=== PATIENT | male | born 1990 | race Hispanic/Latino ===

== ENCOUNTER 2022-11-24 08:00 | Emergency (ER) | payer SELFPAY ==
--- NOTE | 2022-11-24 08:26 | ER ---
Nurse's Notes [facility] Name: Eliceo Vivar Age: 32 yrs Sex: Male : 1990 Arrival Date: 11/24/2022 Time: 08:00 Bed 15 Private MD: Diagnosis: Abrasion of penis Presentation: 11/24 08:16 Chief complaint: Patient states: penile pain around the tip x1 mo with a purple dot kc6 that appeared x1 week ago. denies urinary symptoms or n/v/d. stated he has seen an MD and they told him it could be secondary to complicated intercourse. Coronavirus screen: At this time, the client does not indicate any symptoms associated with coronavirus-19. Ebola Screen: No symptoms or risks identified at this time. Initial Sepsis Screen: Does the patient meet any 2 criteria? No. Patient's initial sepsis screen is negative. Does the patient have a suspected source of infection? No. Patient's initial sepsis screen is negative. Risk Assessment: Do you want to hurt yourself or someone else? Patient reports no desire to harm self or others. Onset of symptoms was November 24, 2022. 08:16 Method Of Arrival: Ambulatory kc6 08:16 Acuity: DRAGAN 4 kc6 Triage Assessment: 08:17 General: Appears in no apparent distress. comfortable, Behavior is calm, cooperative, kc6 appropriate for age. Pain: Complains of pain in penis. EENT: No signs and/or symptoms were reported regarding the EENT system. Neuro: Level of Consciousness is awake, alert, obeys commands, Oriented to person, place, time, situation, Appropriate for age. Cardiovascular: Capillary refill < 3 seconds. Respiratory: Airway is patent Trachea midline Respiratory effort is even, unlabored, Respiratory pattern is regular, symmetrical. GI: No signs and/or symptoms were reported involving the gastrointestinal system. : No signs and/or symptoms were reported regarding the genitourinary system. Denies burning with urination, discharge, urinary frequency. Derm: No signs and/or symptoms reported regarding the dermatologic system. Skin is intact, is healthy with good turgor, Skin is pink, warm \T\ dry. Musculoskeletal: No signs and/or symptoms reported regarding the musculoskeletal system. Circulation, motion, and sensation intact. Capillary refill < 3 seconds, Range of motion: intact in all extremities. Historical: - Allergies: 08:17 No Known Allergies; kc6 - Home Meds: 08:17 None [Active]; kc6 - PMHx: 08:17 None; kc6 - PSHx: 08:17 None; kc6 - Immunization history:: Adult Immunizations up to date. - Social history:: Smoking status: Patient denies any tobacco usage or history of. - Family history:: not pertinent. Screenin:18 [facility] ED Fall Risk Assessment (Adult) History of falling in the last 3 months, kc6 including since admission No falls in past 3 months (0 pts) Confusion or Disorientation No (0 pts) Intoxicated or Sedated No (0 pts) Impaired Gait No (0 pts) Mobility Assist Device Used No (0 pt) Altered Elimination No (0 pt) Score/Fall Risk Level 0 - 2 = Low Risk. Abuse screen: Denies threats or abuse. Denies injuries from another. Nutritional screening: No deficits noted. Tuberculosis screening: No symptoms or risk factors identified. Assessment: 08:19 Reassessment: please see triage assessment. kc6 Vital Signs: 08:16 BP 148 / 102; Pulse 99; Resp 18 S; Temp 97.9(O); Pulse Ox 99% on R/A; kc6 ED Course: 08:02 Patient arrived in ED. mg5 08:04 Gerson Alicia MD is Attending Physician. rt 08:16 Smiley Cope RN is Primary Nurse. kc6 08:17 Triage completed. kc6 08:17 Arm band placed on. kc6 08:18 Patient has correct armband on for positive identification. Bed in low position. Call kc6 light in reach. Side rails up X 1. 08:48 No provider procedures requiring assistance completed. Patient did not have IV access kc6 during this emergency room visit. Administered Medications: No medications were administered Medication: 08:48 VIS not applicable for this client. kc6 Outcome: 08:25 Discharge ordered by . rt 08:48 Discharged to home ambulatory. kc6 08:48 Condition: stable 08:48 Discharge instructions given to patient, Instructed on discharge instructions, follow up and referral plans. safe sex practices, Demonstrated understanding of instructions, follow-up care. 08:53 Patient left the ED. kc6 Signatures: Smiley Cope RN RN sylvie TurkingtonGerson MD MD rt [place], [place] mg5
--- NOTE | 2022-11-24 08:26 | EDPHYS ---
Physician Documentation [facility] Name: Eliceo Vivar Age: 32 yrs Sex: Male : 1990 Arrival Date: 11/24/2022 Time: 08:00 Bed 15 Private MD: ED Physician Gerson Alicia HPI: 11/24 12:05 This 32 yrs old Male presents to ER via Ambulatory with complaints of Pelvic rt Pain. 12:05 Patient presents to the ED with pain to the penis. This has been present for about 1 rt week. Patient states this occurred after having rough sex without any lubrication. The patient was seen by , Stated it was likely due to the intercourse. Denies other acute complaints at this time. Symptoms are mild in severity, no other aggravating or alleviating factors. . Historical: - Allergies: 08:17 No Known Allergies; kc6 - Home Meds: 08:17 None [Active]; kc6 - PMHx: 08:17 None; kc6 - PSHx: 08:17 None; kc6 - Immunization history:: Adult Immunizations up to date. - Social history:: Smoking status: Patient denies any tobacco usage or history of. - Family history:: not pertinent. ROS: 12:05 Constitutional: Negative for fever, chills, and weight loss, Cardiovascular: Negative rt for chest pain, palpitations, and edema, Respiratory: Negative for shortness of breath, cough, wheezing, and pleuritic chest pain, Abdomen/GI: Negative for abdominal pain, nausea, vomiting, diarrhea, and constipation, Skin: Negative for injury, rash, and discoloration, Neuro: Negative for headache, weakness, numbness, tingling, and seizure, Psych: Negative for depression, anxiety, suicide ideation, homicidal ideation, and hallucinations. 12:05 : Positive for penile pain, Negative for penile discharge, testicular pain Exam: 12:05 Constitutional: This is a well developed, well nourished patient who is awake, alert, rt and in no acute distress. Head/Face: Normocephalic, atraumatic. Chest/axilla: Normal chest wall appearance and motion. Nontender with no deformity. No lesions are appreciated. Cardiovascular: Regular rate and rhythm with a normal S1 and S2. No gallops, murmurs, or rubs. Normal PMI, no JVD. No pulse deficits. Respiratory: Lungs have equal breath sounds bilaterally, clear to auscultation and percussion. No rales, rhonchi or wheezes noted. No increased work of breathing, no retractions or nasal flaring. Abdomen/GI: Soft, non-tender, with normal bowel sounds. No distension or tympany. No guarding or rebound. No evidence of tenderness throughout. Skin: Warm, dry with normal turgor. Normal color with no rashes, no lesions, and no evidence of cellulitis. MS/ Extremity: Pulses equal, no cyanosis. Neurovascular intact. Full, normal range of motion. Neuro: Awake and alert, GCS 15, oriented to person, place, time, and situation. Cranial nerves II-XII grossly intact. Motor strength 5/5 in all extremities. Sensory grossly intact. Cerebellar exam normal. Normal gait. 12:05 : Small abrasion noted just proximal to the glans penis on the right side. No active bleeding, no herpetic lesions. Rest of exam is within normal limits. Vital Signs: 08:16 BP 148 / 102; Pulse 99; Resp 18 S; Temp 97.9(O); Pulse Ox 99% on R/A; kc6 MDM: 08:14 Patient medically screened. rt 12:07 Differential diagnosis: Abrasion, urethritis, herpes. Data reviewed: vital signs, rt nurses notes. Test considered but Not performed: Labs: Symptoms are consistent with an abrasion, no evidence of infection. Labs not indicated. Counseling: I had a detailed discussion with the patient and/or guardian regarding the historical points, exam findings, and any diagnostic results supporting the discharge/admit diagnosis, the need for outpatient follow up, to return to the emergency department if symptoms worsen or persist or if there are any questions or concerns that arise at home. Administered Medications: No medications were administered Disposition Summary: 11/24/22 08:25 Discharge Ordered Location: Home rt Problem: an ongoing problem rt Symptoms: are unchanged rt Condition: Stable rt Diagnosis - Abrasion of penis rt Followup: rt - With: Private Physician - When: 5 - 6 days - Reason: Discharge Instructions: - Discharge Summary Sheet rt - Abrasion rt Forms: - Medication Reconciliation Form rt - Thank You Letter rt - Antibiotic Education rt - Prescription Opioid Use rt - Patient Portal Instructions rt - Leadership Thank You Letter rt Signatures: Smiley Cope, RN RN kc6 Gerson Alicia MD MD rt
[2022-11-24 09:06] VITALS: BP 148/102; TEMP 97.9; O2SAT 99
== END 2022-11-24 08:53 | disposition home or self-care (01) ==
LOC: ER 08:00
DX: S30.812A Abrasion of penis, initial encounter (principal)

== ENCOUNTER 2023-02-24 06:54 | Emergency (ER) | payer SELFPAY ==
--- OUTSIDE RECORDS SUMMARY | 2023-02-24 06:58 | XMS REPORT | Continuity of Care Document ---
:1990 Author Organization [facility] t Address [address] [place] [address] [place] [id number] Care Team Providers Name Role Phone JeancarlosRolando Attending Clinician Jake Meyers Attending Clinician Law Velazquez Attending Clinician Pasquale Castellon Attending Clinician Zulema Park Attending Clinician Skylar Cazares Attending Clinician Problems Condition Condition Condition Status Onset Resolution Last Treating Co mments Source Name Details Category Date Date Treatment Clinician Date NEW PT NEW PT Diagnosis Active 2018-09-28 M emoria CONSULT - CONSULT - 09-14 14:08:00 l ABD PAIN - ABD PAIN - 00:00: Jorge Alberto watson ER FOLLOW ER FOLLOW 00 UP UP Active 09/14/2018 [facility] NAUSEA NAUSEA Diagnosis Active 2017-042018-02-02 Me moria Active 19:51:00 l 01/27/2018 00:00: Odin singh 00 [facility] ABDOMINAL ABDOMINAL Diagnosis Active 2017-11-05 Memoria PAIN PAIN 8- 15:42:00 l Active 00:00: Stew 11/05/2017 00 [facility] BACK PAIN BACK Diagnosis Active 2017-10-27 [facility] PAIN 10-27 21:19:00 l Active 00:00: Stew 10/27/2017 00 [facility] HEADACHE HEADACHE Diagnosis Active 2016-042017-02-27 Memoria Active 04-28 00:28:00 l 02/26/2017 00:00: Odin singh 00 [place] ABD PAIN ABD PAIN Diagnosis Active 2015-10-23 Memoria Active 10-22 19:56:00 l 10/23/2015 00:00: Odin singh 00 [facility] Finding Finding Problem Resolve 2018-09-30 Memoria related to related to d 22:48:44 l awareness awareness Meagan teixeira of of diagnosis diagnosis (finding) (finding) Resolved Problem 09/30/2018 [facility], [place] Abdominal Problem Active 2018-09-30 Me moria pain Abdominal 22:48:44 l (finding) pain Stew (finding) Active Problem 09/30/2018 [facility] Loose Loose Problem Active 2018-09-30 Memor ia stool stool 22:48:44 l (finding) (finding) Herm puneet Active Problem 09/30/2018 [facility] History of Past Illness Condition Condition Condition Status Onset Resolution Last Treating Co mments Source Name Details Category Date Date Treatment Clinician Date Other Other Problem 2017-042018-08-17 2018-08-17 M emoria specified specified 11:05:13 11:05:13 l diseases diseases 05:00: Odin singh of anus of anus 00 and rectum and rectum 01/28/2018 08/17/2018 [facility] Unspecifie Unspecifi Problem 2018-05-25 2018-05-25 Memoria d ed 8-10 13:53:54 13:53:54 l abdominal abdominal 03:34: Herm puneet pain pain 12 11/11/2017 05/25/2018 [facility] Pelvic and Pelvic Problem 2017-2018-05-25 2018-05-25 Memoria perineal and - 13:53:54 13:53:54 l pain perineal 05:00: [place] pain 00 11/05/2017 05/25/2018 [facility] Lower Lower Problem 2017-2018-05-16 2018-05-16 M emoria abdominal abdominal 11-03 16:42:48 16:42:48 l pain, pain, 03:42: Stew unspecifie unspecifie 22 d d 11/03/2017 05/16/2018 [facility] Headache Headache Problem 2016-042017-03-02 2017-03-02 Memoria 02/27/201704-29 01:31:41 01:31:41 l 03/02/2017 06:00: Odin singh 00 [place] Discharge Discharge Problem 2015-10-26 2015-10-26 Memradha Diagnosis: Diagnosis: 10-22 04:57:56 04:57:56 l Abdominal Abdominal 05:00: Herm puneet pain pain 00 10/23/2015 10/26/2015 [facility] Discharge Discharge Problem 2015-2015-10-26 2015-10-26 Memradha Diagnosis: Diagnosis: 10-22 04:57:56 04:57:56 l Diarrhea Diarrhea 05:00: Odin n 10/23/2015 00 10/26/2015 [facility] Allergies, Adverse Reactions, Alerts Allergy Allergy Status Severity Reaction(s) Onset Inactive Treating Comm ents Source Name Type Date Date Clinician No Known No Known Active Memori a Medicati Medicati l on on [place] Allergie Allergie s s Social History Social Habit Start Date Stop Date Quantity Comments Source Social History 2018-09-28 2018-09-28 [facility] 19:18:52 19:18:52 Smoking Status Start Date Stop Date Source Social [facility] Medications Ordered Filled Start Stop Current Ordering Indication Dosage Frequency Signature Comments Components Source Medication Medication Date Date Medication? Clinician (SIG) Name Name ibuprofen No 600 mg = 1 Me moria 600 mg oral 10-28 tab, PO, l tablet 05:02: Q6H, PRN Stew 00 Pain or Fever, Take with food, X 10 day, # 40 tab, 0 Refill(s) Cyclobenzap No 10 mg, PO, Memoria rine 10-28 TID, PRN l hydrochlori 05:02: Muscle Herm puneet de 10 MG 00 Spasm, X Oral Tablet 10 day, # [Flexeril] 30 tab, 0 Refill(s) Flexeril No 10 mg, Memoria 10-28 Route: PO, l 04:31: ONCE, Dosing Weight 77.273, kg, Priority: STAT, Start date: 10/27/17 23:31:00 CDT, Stop date: 10/27/17 23:31:00 CDT Acetaminoph 2016-04 No Notes: Do M emoria en 04-29 not exceed l 05:50: 4 gm/day. [place] 00 (Same as: Tylenol) Reglan 2016-04 No Notes: Memoria 04-29 (Same as: l 05:50: Reglan) Sodium 2016-04 No 1,000 mL, Memori a Chloride 1-26 1000 l 0.9% 05:50: ml/hr, Stew (Bolus) IV 00 Infuse Over: 1 hr, Route: IV, 1,000, Drug form: INJ, ONCE, Priority: STAT, Dosing Weight 68.182 kg, Start date: 02/26/17 23:50:00 [employer], Stop date: 02/26/17 23:50:00 [employer] Benadryl 2017- No 25 mg, 1 Memor ia 1-26 tab, l 05:50: Route: PO, Stew 00 Drug form: TAB, ONCE, Dosing Weight 68.182, kg, Priority: STAT, Start date: 02/26/17 23:50:00 [employer], Stop date: 02/26/17 23:50:00 [employer] Ranitidine Yes 150 mg = 1 M emoria 150 MG Oral 7-22 tab, PO, l Tablet 02:24: BID, # 60 Odin n [Zantac] 00 tab, 0 Refill(s) Phenergan Yes 25 mg = 1 Mem oria 25 mg oral 7-22 tab, PO, l tablet 02:24: Q6H, PRN Stew 00 Nausea, X 4 day, # 15 tab, 0 Refill(s) Dicyclomine Yes 20 mg = 1 M emoria Hydrochlori 7-22 tab, PO, l de 20 MG 02:23: QID-Before Her morales Oral Tablet 00 Meals, # [Bentyl] 28 tab, 0 Refill(s) Levsin No Notes: Memoria -22 (Same as: l 00:39: Levsin) Stew 00 MEDICATION WASTE Product Size: 0.5 mg Product Wasted: ___ mg Saline No Notes: Memoria Flush 0.9% - (Same as: l 00:31: BD [place] 00 Posiflush) Sodium No 1,000 mL, Memori a Chloride -22 2,000 l 0.154 00:31: ml/hr, Stew MEQ/ML 00 Infuse Injectable Over: 30 Solution minutes, Route: IV, 1,000, Drug form: INJ, ONCE, Priority: STAT, Dosing Weight 70.455 kg, Start date: 10/23/15 19:31:00 CDT, Duration: 1 doses or times, Stop date: 10/23/15 19:31:00 CDT Vital Signs Vital Name Observation Time Observation Value Comments Source BMI Calculated 2018-09-28 19:07:00 Memori al [place] Weight 2018-09-28 19:07:00 [facility] [place] Height 2018-09-28 19:07:00 180.34 cm [facility] [place] Heart Rate 2018-09-28 19:07:00 [facility] [place] Respitory Rate 2018-09-28 19:07:00 Memori al [place] Systolic (mm Hg) 2018-09-28 19:07:00 Jonathan rial Stew Diastolic (mm Hg) 2018-09-28 19:07:00 Mem orial Stew Diastolic (mm Hg) 2018-01-28 09:20:00 Mem orial [place]w Systolic (mm Hg) 2018-01-28 09:20:00 Jonathan rial [place] Respitory Rate 2018-01-28 09:20:00 Memori al Stew Heart Rate 2018-01-28 09:20:00 [facility] [place] Temperature Oral (F) 2018-01-28 09:20:00 97.9 F [facility] [place] BMI Calculated 2018-01-28 04:13:00 Memori al [place] Weight 2018-01-28 04:13:00 [facility] [place] Height 2018-01-28 04:13:00 180.34 cm [facility] [place] Temperature Oral (F) 2018-01-28 04:13:00 98 F [facility] [place] Systolic (mm Hg) 2018-01-28 04:13:00 Jonathan rial Stew Diastolic (mm Hg) 2018-01-28 04:13:00 Mem orial [place] Respitory Rate 2018-01-28 04:13:00 Memori al Stew Heart Rate 2018-01-28 04:13:00 [facility] [place] Systolic (mm Hg) 2017-11-05 23:17:00 Jonathan rial Stew Diastolic (mm Hg) 2017-11-05 23:17:00 Mem orial [place] Heart Rate 2017-11-05 23:17:00 [facility] Stew Temperature Oral (F) 2017-11-05 23:17:00 98.5 F [facility] [place] Respitory Rate 2017-11-05 23:17:00 Memori al Stew BMI Calculated 2017-11-05 19:37:00 Memori al [place] Heart Rate 2017-11-05 19:37:00 [facility] [place] Respitory Rate 2017-11-05 19:37:00 Memori al Stew Systolic (mm Hg) 2017-11-05 19:37:00 Jonathan rial [place] Diastolic (mm Hg) 2017-11-05 19:37:00 Mem orial [place] Weight 2017-11-05 19:37:00 [facility] [place] Height 2017-11-05 19:37:00 180.34 cm [facility] [place] Systolic (mm Hg) 2017-10-28 04:48:00 Jonathan rial Stew Diastolic (mm Hg) 2017-10-28 04:48:00 Mem orial Stew Heart Rate 2017-10-28 04:27:00 [facility] Stew Systolic (mm Hg) 2017-10-28 04:27:00 Jonathan rial [place] Diastolic (mm Hg) 2017-10-28 04:27:00 Mem orial [place] Respitory Rate 2017-10-28 04:27:00 Memori al Stew Temperature Oral (F) 2017-10-28 04:27:00 98.2 F [facility] [place] BMI Calculated 2017-10-28 01:08:00 Memori al Stew Height 2017-10-28 01:08:00 180.34 cm [facility] Stew Weight 2017-10-28 01:08:00 [facility] [place] Temperature Oral (F) 2017-10-28 01:08:00 98.0 F [facility] Stew Respitory Rate 2017-10-28 01:08:00 Memori al [place] Heart Rate 2017-10-28 01:08:00 [facility] [place] Systolic (mm Hg) 2017-10-28 01:08:00 Jonathan rial Stew Diastolic (mm Hg) 2017-10-28 01:08:00 Mem orial [place] Heart Rate 2017-02-27 08:26:00 [facility] Stew Systolic (mm Hg) 2017-02-27 08:26:00 Jonathan rial Stew Diastolic (mm Hg) 2017-02-27 08:26:00 Mem orial [place] Respitory Rate 2017-02-27 08:26:00 Memori al Stew Temperature Oral (F) 2017-02-27 08:26:00 97.5 F [facility] Ste[place] Heart Rate 2017-02-27 07:00:00 [facility] [place] Systolic (mm Hg) 2017-02-27 07:00:00 Jonathan rial Stew Diastolic (mm Hg) 2017-02-27 07:00:00 Mem orial Stew Respitory Rate 2017-02-27 07:00:00 Memori al Stew Heart Rate 2017-02-27 04:55:00 [facility] Ste[place] Respitory Rate 2017-02-27 04:55:00 Memori al Stew Temperature Oral (F) 2017-02-27 04:55:00 97.5 F [facility] Stew Systolic (mm Hg) 2017-02-27 04:55:00 Jonathan rial [place] Diastolic (mm Hg) 2017-02-27 04:55:00 Mem orial [place] Weight 2017-02-27 03:54:00 [facility] [place] BMI Calculated 2017-02-27 03:54:00 Memori al [place] Temperature Oral (F) 2017-02-27 03:54:00 98.5 F [facility] [place] Height 2017-02-27 03:54:00 180.34 cm [facility] [place] Systolic (mm Hg) 2015-10-24 02:34:00 Jonathan rial [place] Diastolic (mm Hg) 2015-10-24 02:34:00 Mem orial [place] Heart Rate 2015-10-24 02:34:00 [facility] [place] Temperature Oral (F) 2015-10-24 02:34:00 98.4 F [facility] Ste[place] Weight 2015-10-24 00:28:00 [facility] [place] BMI Calculated 2015-10-24 00:28:00 Memori al Stew Systolic (mm Hg) 2015-10-24 00:28:00 Jonathan rial Stew Diastolic (mm Hg) 2015-10-24 00:28:00 Mem orial [place] Height 2015-10-24 00:28:00 180.34 cm [facility] [place] Heart Rate 2015-10-24 00:28:00 [facility] Stew Respitory Rate 2015-10-24 00:28:00 Memori al [place] Temperature Oral (F) 2015-10-24 00:28:00 98.3 F [facility] Stew Procedures This patient has no known procedures. Encounters Start End Encounter Admission Attending Care Care Encounter Source Date/Time Date/Time Type Type Clinicians Facility Department ID 2018-09-28 2018-09-29 Outpatient nullFl[facility] [id number] Memoria 18:59:00 04:59:00 r Disease 06 [facility] 2018-09-28 2018-09-28 Outpatient GUTIERREZ ArshadC [facility] [id number] 13:59:00 23:59:00 Asmeen 06 2018-09-28 2018-09-28 Outpatient [facility] [id number] [facility] 13:59:00 13:59:00 2018-01-28 2018-01-28 Emergency nullFlavo [facility] [id number] Memoria 04:05:00 09:10:00 abrahan Mathias 04 [facility] 2018-01-27 2018-01-28 Outpatient Mira, MHSE MHSE [id number] 23:05:00 04:10:00 Jake Pierre 2017-11-24 2017-11-24 Ambulatory nullFlavo [facility] [id number] Memoria 14:45:00 14:45:00 Pre-Reg r Urology 01 [facility] 2017-11-24 2017-11-24 Outpatient MHIE MHIE [id number] Memoria 09:45:00 09:45:00 01 [facility] 2017-11-24 2017-11-24 [id number] 09:45:00 09:45:00 Higinio 2017-11-05 2017-11-05 Emergency nullFlavo [facility] [id number] Memoria 19:34:00 23:20:00 abrahan Mathias 03 [facility] 2017-11-05 2017-11-05 Outpatient Castellon, MHSE MHSE [id number] 14:34:00 18:20:00 Pasquale Soniya OneillNabil 2017-10-28 2017-10-28 Emergency nullFlavo [facility] [id number] Memoria 01:03:00 05:31:00 abrahan Mathias 02 [facility] 2017-10-27 2017-10-28 Outpatient Vivian, MHSE MHSE [id number] 20:03:00 00:31:00 Zulema Yeboah 02 2017-02-27 2017-02-27 Emergency nullFlavo [facility] [id number] Memoria 03:48:00 08:31:00 abrahan Mathias 01 l [facility] 2017-02-26 2017-02-27 Outpatient Aznaurova-A MHSE MHSE [id number] 21:48:00 02:31:00 Hood adams 2016-09-01 2016-09-01 Outpatient MHIE MHIE [id number] Memoria 15:15:00 15:15:00 00 l [place] 2015-10-24 2015-10-24 EC nullFlavo [facility] [id number] Memoria 00:20:00 02:46:00 Emergency r [place] 00 l [facility] 2015-10-23 2015-10-23 Outpatient Vivian, MHSE MHSE [id number] 19:20:00 21:46:00 Zulema Ahmed 00 Results Test Description Test Time Test Comments Results Result Comments Source CHEM PANEL 2018-01-28 06:36:00 Test Item Value Reference Range Interpretation Comme nts A/G Ratio (test code = A/G Ratio) 1.0 1 0.7-1.6 [facility] [id number] 06:36:00 Test Item Value Reference Range Interpretation Comments AGAP (test code = AGAP) 7.9 10.0-20.0 [facility] [employer] [id number] 06:36:00 Test Item Value Reference Range Interpretation Comments Globulin (test code = Globulin) 4.0 2.7-4.2 [facility] [employer] [id number] 06:36:00 Test Item Value Reference Range Interpretation Comments B/C Ratio (test code = B/C Ratio) 13 1 6-25 [facility] [employer] [id number] 06:36:00 Test Item Value Reference Range Interpretation Comments eGFR (test code = eGFR) 95 [facility] [id number] 06:36:00 Test Item Value Reference Range Interpretation Comments AST (test code = AST) 26 <=37 [facility] [employer] [id number] 06:36:00 Test Item Value Reference Range Interpretation Comments Bili Total (test code = Bili Total) 0.6 0.2-1.3 [facility] [employer] [id number] 06:36:00 Test Item Value Reference Range Interpretation Comments Alk Phos (test code = Alk Phos) 68 39-136 [facility]2018-10-27 06:36:00 Test Item Value Reference Range Interpretation Comments Total Protein (test code = Total 8.2 6.4-8.4 Protein) [facility]2018-10-27 06:36:00 Test Item Value Reference Range Interpretation Comments ALT (test code = ALT) 66 <=65 [facility]2018-10-27 06:36:00 Test Item Value Reference Range Interpretation Comments Albumin Lvl (test code = Albumin Lvl) 4.2 3.5-5.0 [facility]2018-10-27 06:36:00 Test Item Value Reference Range Interpretation Comments CO2 (test code = CO2) 31 24-32 [facility]2018-10-27 06:36:00 Test Item Value Reference Range Interpretation Comments Chloride Lvl (test code = Chloride Lvl) 105 95-109 [facility]2018-10-27 06:36:00 Test Item Value Reference Range Interpretation Comments Potassium Lvl (test code = Potassium 3.9 3.5-5.1 Lvl) [facility]2018-10-27 06:36:00 Test Item Value Reference Range Interpretation Comments Calcium Lvl (test code = Calcium Lvl) 9.2 8.5-10.5 [facility]2018-10-27 06:36:00 Test Item Value Reference Range Interpretation Comments BUN (test code = BUN) 14 7-22 [facility]2018-10-27 06:36:00 Test Item Value Reference Range Interpretation Comments Glucose Lvl (test code = Glucose Lvl) 98 70-99 [facility]2018-10-27 06:36:00 Test Item Value Reference Range Interpretation Comments Sodium Lvl (test code = Sodium Lvl) 140 135-145 [facility]2018-10-27 06:36:00 Test Item Value Reference Range Interpretation Comments Creatinine Lvl (test code = Creatinine 1.07 0.50-1.40 Lvl) [facility]2018-10-27 06:36:00 Test Item Value Reference Range Interpretation Comments Lipase Lvl (test code = Lipase Lvl) 154 73-393 [id number] 06:36:00 Test Item Value Reference Range Interpretation Comments Eosinophils # (test code = Eosinophils 0.1 <=0.5 #) [id number] 06:36:00 Test Item Value Reference Range Interpretation Comments Monocytes # (test code = Monocytes #) 0.8 <=0.8 [facility] [id number] 06:36:00 Test Item Value Reference Range Interpretation Comments Segs (test code = Segs) 62.0 45.0-75.0 [facility] CenterRnnnbngRSJMTCVFKY8830-01-51 06:36:00 Test Item Value Reference Range Interpretation Comments Lymphocytes (test code = Lymphocytes) 26.3 20.0-40.0 [facility] [id number] 06:36:00 Test Item Value Reference Range Interpretation Comments Monocytes (test code = Monocytes) 10.2 2.0-12.0 [facility] CenterVmjuhqzKZHSTVHHRS2876-46-42 06:36:00 Test Item Value Reference Range Interpretation Comments Lymphocytes # (test code = Lymphocytes 2.0 1.0-5.5 #) [facility] C[id number] 06:36:00 Test Item Value Reference Range Interpretation Comments Neutrophils # (test code = Neutrophils 4.6 1.5-8.1 #) [facility] CenterAdtmxcuTTIVULGLZG8554-80-17 06:36:00 Test Item Value Reference Range Interpretation Comments Basophils (test code = Basophils) 0.4 <=1.0 [facility] CenterSqjiyvaXWIQQIAHIF1504-51-50 06:36:00 Test Item Value Reference Range Interpretation Comments Eosinophils (test code = Eosinophils) 1.1 <=4.0 [facility] [id number] 06:36:00 Test Item Value Reference Range Interpretation Comments MCHC (test code = MCHC) 34.1 32.0-36.0 [facility] [id number] 06:36:00 Test Item Value Reference Range Interpretation Comments RDW (test code = RDW) 13.6 11.5-14.5 [facility] CenterNoiqfpqAXNVQMFSYL0363-04-01 06:36:00 Test Item Value Reference Range Interpretation Comments Platelet (test code = Platelet) 197 133-450 [facility] CenterNctrgzwLQRLKRYXPD9192-26-45 06:36:00 Test Item Value Reference Range Interpretation Comments Hgb (test code = Hgb) 17.7 14.0-18.0 [facility] CenterDnjwjrlQFCBGKYHYQ2754-82-02 06:36:00 Test Item Value Reference Range Interpretation Comments RBC (test code = RBC) 5.61 4.70-6.10 [facility] [id number] 06:36:00 Test Item Value Reference Range Interpretation Comments MPV (test code = MPV) 9.5 7.4-10.4 [facility] C[id number] 06:36:00 Test Item Value Reference Range Interpretation Comments MCH (test code = MCH) 31.6 pg 27.0-31.0 [facility] CenterWqzjbieJHUQEQGZXW0724-04-27 06:36:00 Test Item Value Reference Range Interpretation Comments MCV (test code = MCV) 92.5 80.0-94.0 [facility] [id number] 06:36:00 Test Item Value Reference Range Interpretation Comments WBC (test code = WBC) 7.5 3.7-10.4 [facility] [id number] 06:36:00 Test Item Value Reference Range Interpretation Comments Hct (test code = Hct) 51.9 42.0-54.0 [facility] AND [id number] 06:36:00 Test Item Value Reference Range Interpretation Comments UA Spec Grav (test code = UA Spec 1.024 1 Grav) [facility] AND [id number] 06:36:00 Test Item Value Reference Range Interpretation Comments UA Turbidity (test code = Clear (01/28/18 1:36 UA Turbidity) AM) [facility] AND [id number] 06:36:00 Test Item Value Reference Range Interpretation Comments UA Glucose (test code Negative *NA*(01/28/18 = UA Glucose) 1:36 AM) [facility] AND [id number] 06:36:00 Test Item Value Reference Range Interpretation Comments UA Leuk Est (test Negative (01/28/18 1:36 code = UA Leuk Est) AM) [facility] AND [id number] 06:36:00 Test Item Value Reference Range Interpretation Comments UA RBC (test code = UA RBC) 3 <=2 [facility] AND [id number] 06:36:00 Test Item Value Reference Range Interpretation Comments UA Mucus (test code = UA Mucus) Few /LPF [facility] AND [id number] 06:36:00 Test Item Value Reference Range Interpretation Comments UA Sq Epi (test code = UA Sq Occasional /LPF Epi) [facility] AND [id number] 06:36:00 Test Item Value Reference Range Interpretation Comments UA WBC (test code = UA WBC) 1 <=5 [facility] AND [id number] 06:36:00 Test Item Value Reference Range Interpretation Comments UA pH (test code = UA pH) 5.0 1 5.0-8.0 [facility] AND [id number] 06:36:00 Test Item Value Reference Range Interpretation Comments UA Nitrite (test code Negative (01/28/18 1:36 = UA Nitrite) AM) [facility] AND [id number] 06:36:00 Test Item Value Reference Range Interpretation Comments UA Protein (test code Negative (01/28/18 1:36 = UA Protein) AM) [facility] AND [id number] 06:36:00 Test Item Value Reference Range Interpretation Comments UA Bili (test code = Negative *NA*(01/28/18 UA Bili) 1:36 AM) [facility] AND [id number] 06:36:00 Test Item Value Reference Range Interpretation Comments UA Blood (test code = Negative (01/28/18 1:36 UA Blood) AM) [facility] AND [id number] 06:36:00 Test Item Value Reference Range Interpretation Comments UA Urobilinogen (test code = UA <=1.0 mg/dL 0.1-1.0 Urobilinogen) [facility] AND [id number] 06:36:00 Test Item Value Reference Range Interpretation Comments UA Ketones (test code Negative *NA*(01/28/18 = UA Ketones) 1:36 AM) [facility] AND [id number] 06:36:00 Test Item Value Reference Range Interpretation Comments UA Color (test code = Yellow *NA*(01/28/18 UA Color) 1:36 AM) [facility] AND [id number] 20:05:00 Test Item Value Reference Range Interpretation Comments UA Ketones (test code = UA Negative mg/dL Ketones) [facility] AND [id number] 20:05:00 Test Item Value Reference Range Interpretation Comments UA Bili (test code = Negative *NA*(11/05/17 UA Bili) 3:05 PM) [facility] [id number] 20:05:00 Test Item Value Reference Range Interpretation Comments UA Blood (test code = Negative (11/05/17 3:05 UA Blood) PM) [facility] [id number] 20:05:00 Test Item Value Reference Range Interpretation Comments UA Nitrite (test code Negative (11/05/17 3:05 = UA Nitrite) PM) [facility] [id number] 20:05:00 Test Item Value Reference Range Interpretation Comments UA Leuk Est (test Negative (11/05/17 3:05 code = UA Leuk Est) PM) [facility] [id number] 20:05:00 Test Item Value Reference Range Interpretation Comments UA Bacteria (test code = UA Occasional /HPF Bacteria) [facility] [id number] 20:05:00 Test Item Value Reference Range Interpretation Comments UA Sq Epi (test code = UA Sq Occasional /LPF Epi) [facility] [id number] 20:05:00 Test Item Value Reference Range Interpretation Comments UA WBC (test code = UA WBC) no gt <=5 [facility] [id number] 20:05:00 Test Item Value Reference Range Interpretation Comments UA Mucus (test code = UA Mucus) Few /LPF [facility] AND [id number] 20:05:00 Test Item Value Reference Range Interpretation Comments UA Urobilinogen (test code = UA <=1.0 mg/dL 0.1-1.0 Urobilinogen) [facility] [id number] 20:05:00 Test Item Value Reference Range Interpretation Comments UA Spec Grav (test code = UA Spec 1.023 1 Grav) [facility] [id number] 20:05:00 Test Item Value Reference Range Interpretation Comments UA pH (test code = UA pH) 5.0 1 5.0-8.0 [facility] [id number] 20:05:00 Test Item Value Reference Range Interpretation Comments UA Protein (test code = UA Negative mg/dL Protein) [facility] [id number] 20:05:00 Test Item Value Reference Range Interpretation Comments UA Glucose (test code = UA Negative mg/dL Glucose) [facility] AND [id number] 20:05:00 Test Item Value Reference Range Interpretation Comments UA Turbidity (test code = Clear (11/05/17 3:05 UA Turbidity) PM) [facility] AND [id number] 20:05:00 Test Item Value Reference Range Interpretation Comments UA Color (test code = Yellow *NA*(11/05/17 3:05 UA Color) PM) [facility]2018-08-04 19:56:00 Test Item Value Reference Range Interpretation Comments ALT (test code = ALT) 52 <=65 [facility]2018-08-04 19:56:00 Test Item Value Reference Range Interpretation Comments CO2 (test code = CO2) 28 24-32 [facility]2018-08-04 19:56:00 Test Item Value Reference Range Interpretation Comments Total Protein (test code = Total 7.7 6.4-8.4 Protein) [facility]2018-08-04 19:56:00 Test Item Value Reference Range Interpretation Comments Calcium Lvl (test code = Calcium Lvl) 8.6 8.5-10.5 [facility]2018-08-04 19:56:00 Test Item Value Reference Range Interpretation Comments Bili Total (test code = Bili Total) 1.3 0.2-1.3 [facility]2018-08-04 19:56:00 Test Item Value Reference Range Interpretation Comments Alk Phos (test code = Alk Phos) 54 39-136 [facility]2018-08-04 19:56:00 Test Item Value Reference Range Interpretation Comments Potassium Lvl (test code = Potassium 4.3 3.5-5.1 Lvl) [facility]2018-08-04 19:56:00 Test Item Value Reference Range Interpretation Comments Chloride Lvl (test code = Chloride Lvl) 105 95-109 [facility]2018-08-04 19:56:00 Test Item Value Reference Range Interpretation Comments Sodium Lvl (test code = Sodium Lvl) 139 135-145 [facility]2018-08-04 19:56:00 Test Item Value Reference Range Interpretation Comments BUN (test code = BUN) 14 7-22 [facility]2018-08-04 19:56:00 Test Item Value Reference Range Interpretation Comments Creatinine Lvl (test code = Creatinine 0.93 0.50-1.40 Lvl) [place] 772678-08-04 19:56:00 Test Item Value Reference Range Interpretation Comments Glucose Lvl (test code = Glucose Lvl) 99 70-99 [facility]2018-08-04 19:56:00 Test Item Value Reference Range Interpretation Comments eGFR (test code = eGFR) 113 [place] 772678-08-04 19:56:00 Test Item Value Reference Range Interpretation Comments A/G Ratio (test code = A/G Ratio) 1.1 1 0.7-1.6 [place] 772678-08-04 19:56:00 Test Item Value Reference Range Interpretation Comments Globulin (test code = Globulin) 3.6 2.7-4.2 [facility]2018-08-04 19:56:00 Test Item Value Reference Range Interpretation Comments B/C Ratio (test code = B/C Ratio) 15 1 6-25 [place] 772678-08-04 19:56:00 Test Item Value Reference Range Interpretation Comments AGAP (test code = AGAP) 10.3 10.0-20.0 [facility] CenterJuybaolCHEMSIIRRL3020-23-44 19:56:00 Test Item Value Reference Range Interpretation Comments Lymphocytes (test code = Lymphocytes) 34.8 20.0-40.0 [facility] CenterNzbhwxbKMNYVTHKYZ2052-27-38 19:56:00 Test Item Value Reference Range Interpretation Comments Segs (test code = Segs) 52.0 45.0-75.0 [place] 327938-08-04 19:56:00 Test Item Value Reference Range Interpretation Comments Eosinophils # (test code = Eosinophils 0.1 <=0.5 #) [place] 327938-08-04 19:56:00 Test Item Value Reference Range Interpretation Comments Monocytes # (test code = Monocytes #) 0.7 <=0.8 [place] [address]-08-04 19:56:00 Test Item Value Reference Range Interpretation Comments Basophils (test code = Basophils) 0.2 <=1.0 [facility] CenterRgkljciCHCAXPOWVM2784-81-73 19:56:00 Test Item Value Reference Range Interpretation Comments Eosinophils (test code = Eosinophils) 0.9 <=4.0 [facility] CenterMunoxhpNGVJWBBOPT4856-98-94 19:56:00 Test Item Value Reference Range Interpretation Comments Monocytes (test code = Monocytes) 12.1 2.0-12.0 [facility] CenterNnzbnhvQKLAMCNBGO3958-21-24 19:56:00 Test Item Value Reference Range Interpretation Comments Lymphocytes # (test code = Lymphocytes 1.9 1.0-5.5 #) [facility] CenterAyufxedHCEUOMOSFR7986-56-35 19:56:00 Test Item Value Reference Range Interpretation Comments Neutrophils # (test code = Neutrophils 2.8 1.5-8.1 #) [facility] CenterRkszjtdSUQARTFKYR8598-16-04 19:56:00 Test Item Value Reference Range Interpretation Comments MCH (test code = MCH) 31.1 pg 27.0-31.0 [facility] CenterJciodkiPTOTBETYMJ4160-88-44 19:56:00 Test Item Value Reference Range Interpretation Comments MCV (test code = MCV) 91.0 80.0-94.0 [facility] CenterUmdpvqpPSFHQAUREN5311-88-61 19:56:00 Test Item Value Reference Range Interpretation Comments RDW (test code = RDW) 13.4 11.5-14.5 [facility] CenterMarixwwGTQUVTWWZA3025-01-28 19:56:00 Test Item Value Reference Range Interpretation Comments Platelet (test code = Platelet) 178 133-450 [facility] CenterJxuecmkOURQQHSLWJ3864-90-81 19:56:00 Test Item Value Reference Range Interpretation Comments MPV (test code = MPV) 9.3 7.4-10.4 [facility] CenterDiyjereORTRPNLUXM7622-01-18 19:56:00 Test Item Value Reference Range Interpretation Comments WBC (test code = WBC) 5.4 3.7-10.4 [facility] CenterMsmllezEOODFWLXTG8740-50-41 19:56:00 Test Item Value Reference Range Interpretation Comments RBC (test code = RBC) 5.64 4.70-6.10 [facility] CenterHxyztleXCWDZHDAVS4944-61-52 19:56:00 Test Item Value Reference Range Interpretation Comments MCHC (test code = MCHC) 34.2 32.0-36.0 [facility] CenterPtnkcjkLBRUSNEQIB7409-76-68 19:56:00 Test Item Value Reference Range Interpretation Comments Hgb (test code = Hgb) 17.6 14.0-18.0 [facility]98 19:56:00 Test Item Value Reference Range Interpretation Comments Hct (test code = Hct) 51.3 42.0-54.0 [facility] [id number] 19:56:00 Test Item Value Reference Range Interpretation Comments Lipase Lvl (test code = Lipase Lvl) 100 73-393 [facility] [id number] 19:56:00 Test Item Value Reference Range Interpretation Comments AST (test code = AST) 14 <=37 [facility] [id number] 19:56:00 Test Item Value Reference Range Interpretation Comments Albumin Lvl (test code = Albumin Lvl) 4.1 3.5-5.0 [facility] AND [id number] 01:30:00 Test Item Value Reference Range Interpretation Comments UA Sq Epi (test code = UA Sq Epi) None Seen [facility] AND [id number] 01:30:00 Test Item Value Reference Range Interpretation Comments UA Leuk Est (test Negative (10/27/17 8:30 code = UA Leuk Est) PM) [facility] AND [id number] 01:30:00 Test Item Value Reference Range Interpretation Comments UA Nitrite (test code Negative (10/27/17 8:30 = UA Nitrite) PM) [facility] AND [id number] 01:30:00 Test Item Value Reference Range Interpretation Comments UA Urobilinogen (test code = UA <=1.0 mg/dL 0.1-1.0 Urobilinogen) [facility] AND [id number] 01:30:00 Test Item Value Reference Range Interpretation Comments UA Hyal Cast (test code = UA Hyal Cast) 1 <=2 [facility] AND [id number] 01:30:00 Test Item Value Reference Range Interpretation Comments UA Ketones (test code = UA Negative mg/dL Ketones) [facility] AND [id number] 01:30:00 Test Item Value Reference Range Interpretation Comments UA Blood (test code = Negative (10/27/17 8:30 UA Blood) PM) [facility] AND [id number] 01:30:00 Test Item Value Reference Range Interpretation Comments UA Bili (test code = Negative *NA*(10/27/17 UA Bili) 8:30 PM) [facility] AND [id number] 01:30:00 Test Item Value Reference Range Interpretation Comments UA WBC (test code = UA WBC) no gt <=5 [facility] AND [id number] 01:30:00 Test Item Value Reference Range Interpretation Comments UA Bacteria (test code = UA Occasional /HPF Bacteria) [facility] AND [id number] 01:30:00 Test Item Value Reference Range Interpretation Comments UA Turbidity (test code = Clear (10/27/17 8:30 UA Turbidity) PM) [facility] AND [id number] 01:30:00 Test Item Value Reference Range Interpretation Comments UA Spec Grav (test code = UA Spec 1.030 1 Grav) [facility] AND [id number] 01:30:00 Test Item Value Reference Range Interpretation Comments UA Color (test code = Yellow *NA*(10/27/17 UA Color) 8:30 PM) [facility] AND [id number] 01:30:00 Test Item Value Reference Range Interpretation Comments UA pH (test code = UA pH) 5.0 1 5.0-8.0 [facility] AND [id number] 01:30:00 Test Item Value Reference Range Interpretation Comments UA Protein (test code = UA Negative mg/dL Protein) [facility] AND [id number] 01:30:00 Test Item Value Reference Range Interpretation Comments UA Glucose (test code = UA Negative mg/dL Glucose) [facility] [id number] 01:15:00 Test Item Value Reference Range Interpretation Comments Lipase Lvl (test code = Lipase Lvl) 104 73-393 [facility]2018-07-27 01:15:00 Test Item Value Reference Range Interpretation Comments A/G Ratio (test code = A/G Ratio) 1.3 1 0.7-1.6 [facility] [id number] 01:15:00 Test Item Value Reference Range Interpretation Comments Globulin (test code = Globulin) 3.5 2.7-4.2 [facility] [id number] 01:15:00 Test Item Value Reference Range Interpretation Comments AGAP (test code = AGAP) 13.6 10.0-20.0 [facility]2018-07-27 01:15:00 Test Item Value Reference Range Interpretation Comments B/C Ratio (test code = B/C Ratio) 13 1 6-25 [facility]2018-07-27 01:15:00 Test Item Value Reference Range Interpretation Comments eGFR (test code = eGFR) 93 [facility]2018-07-27 01:15:00 Test Item Value Reference Range Interpretation Comments Sodium Lvl (test code = Sodium Lvl) 145 135-145 [facility]2018-07-27 01:15:00 Test Item Value Reference Range Interpretation Comments Albumin Lvl (test code = Albumin Lvl) 4.5 3.5-5.0 [facility]2018-07-27 01:15:00 Test Item Value Reference Range Interpretation Comments Total Protein (test code = Total 8.0 6.4-8.4 Protein) [facility]2018-07-27 01:15:00 Test Item Value Reference Range Interpretation Comments Calcium Lvl (test code = Calcium Lvl) 9.3 8.5-10.5 [facility]2018-07-27 01:15:00 Test Item Value Reference Range Interpretation Comments CO2 (test code = CO2) 28 24-32 [facility]2018-07-27 01:15:00 Test Item Value Reference Range Interpretation Comments Bili Total (test code = Bili Total) 0.5 0.2-1.3 [facility]2018-07-27 01:15:00 Test Item Value Reference Range Interpretation Comments Alk Phos (test code = Alk Phos) 54 39-136 [facility]2018-07-27 01:15:00 Test Item Value Reference Range Interpretation Comments AST (test code = AST) 25 <=37 [facility]2018-07-27 01:15:00 Test Item Value Reference Range Interpretation Comments Chloride Lvl (test code = Chloride Lvl) 108 95-109 [facility]2018-07-27 01:15:00 Test Item Value Reference Range Interpretation Comments Potassium Lvl (test code = Potassium 4.6 3.5-5.1 Lvl) [facility]2018-07-27 01:15:00 Test Item Value Reference Range Interpretation Comments ALT (test code = ALT) 44 <=65 [facility]2018-07-27 01:15:00 Test Item Value Reference Range Interpretation Comments BUN (test code = BUN) 14 7-22 [facility]2018-07-27 01:15:00 Test Item Value Reference Range Interpretation Comments Creatinine Lvl (test code = Creatinine 1.09 0.50-1.40 Lvl) [facility]2018-07-27 01:15:00 Test Item Value Reference Range Interpretation Comments Glucose Lvl (test code = Glucose Lvl) 95 70-99 [facility] CenterActcknnZQMACDFQWG7860-37-59 01:15:00 Test Item Value Reference Range Interpretation Comments Platelet (test code = Platelet) 200 133-450 [facility] CenterIbbsmreTWNJNGIAGG3947-20-26 01:15:00 Test Item Value Reference Range Interpretation Comments MPV (test code = MPV) 9.7 7.4-10.4 [facility] CenterPjouhlnKFZDACYBJM5795-37-53 01:15:00 Test Item Value Reference Range Interpretation Comments WBC (test code = WBC) 7.1 3.7-10.4 [facility] CenterQtxfasuLKYPRZLWOE3615-47-74 01:15:00 Test Item Value Reference Range Interpretation Comments RDW (test code = RDW) 13.9 11.5-14.5 [facility] CenterXtjustoUHQHYXHRFK3375-00-54 01:15:00 Test Item Value Reference Range Interpretation Comments MCHC (test code = MCHC) 34.0 32.0-36.0 [facility] CenterHfiirwuQGSDADBPBO6386-31-42 01:15:00 Test Item Value Reference Range Interpretation Comments MCH (test code = MCH) 31.1 pg 27.0-31.0 [facility] CenterQjrakeiIRLQMSMEZU0677-51-91 01:15:00 Test Item Value Reference Range Interpretation Comments MCV (test code = MCV) 91.4 80.0-94.0 [facility] CenterKrrwgfzVZJGGCMYQI6006-32-92 01:15:00 Test Item Value Reference Range Interpretation Comments Hct (test code = Hct) 51.6 42.0-54.0 [facility] CenterMikwoetHRTUIYWTKI5828-18-22 01:15:00 Test Item Value Reference Range Interpretation Comments Hgb (test code = Hgb) 17.5 14.0-18.0 [facility] CenterNvbpvegGLVFXVEZFW7323-57-62 01:15:00 Test Item Value Reference Range Interpretation Comments RBC (test code = RBC) 5.64 4.70-6.10 [facility] CenterYqurazwZORMXEICKP6004-09-55 01:15:00 Test Item Value Reference Range Interpretation Comments Basophils (test code = Basophils) 0.4 <=1.0 [facility] CenterSsutpsuDFFAXJMHPZ3185-79-42 01:15:00 Test Item Value Reference Range Interpretation Comments Neutrophils # (test code = Neutrophils 4.7 1.5-8.1 #) [facility] CenterSqztxnaHBLEOMXFZL9732-67-82 01:15:00 Test Item Value Reference Range Interpretation Comments Monocytes (test code = Monocytes) 8.2 2.0-12.0 [facility] CenterBkbrfgqSYYRNSEUHZ1513-70-45 01:15:00 Test Item Value Reference Range Interpretation Comments Segs (test code = Segs) 65.3 45.0-75.0 [facility] CenterQydnutrACEDFFSLAP3330-07-58 01:15:00 Test Item Value Reference Range Interpretation Comments Eosinophils (test code = Eosinophils) 0.5 <=4.0 [facility] CenterVarksmtJGHOHFFLIC3436-47-40 01:15:00 Test Item Value Reference Range Interpretation Comments Monocytes # (test code = Monocytes #) 0.6 <=0.8 [facility] CenterFdqzifuXRULFUHTQT4609-74-06 01:15:00 Test Item Value Reference Range Interpretation Comments Lymphocytes # (test code = Lymphocytes 1.8 1.0-5.5 #) [facility] CenterFspxltaHLUBXZZOZH8330-27-92 01:15:00 Test Item Value Reference Range Interpretation Comments Lymphocytes (test code = Lymphocytes) 25.6 20.0-40.0 [facility]2016-07-22 01:02:00 Test Item Value Reference Range Interpretation Comments Lipase Lvl (test code = Lipase Lvl) 122 73-393 [facility] CenterJhuvzyoXWRMPXEORVJJ1776-00-05 01:02:00 Test Item Value Reference Range Interpretation Comments AGAP (test code = AGAP) 7.9 10.0-20.0 [facility] CenterMpfxgvmQEQCUPVSQQXT2615-12-09 01:02:00 Test Item Value Reference Range Interpretation Comments B/C Ratio (test code = B/C Ratio) 13 6-25 [facility] CenterUnzqeezMKJGFVZHJYPS9394-67-84 01:02:00 Test Item Value Reference Range Interpretation Comments A/G Ratio (test code = A/G Ratio) 1.0 0.7-1.6 [facility] CenterTwjaqznCLFKQTGRJKEF7033-37-02 01:02:00 Test Item Value Reference Range Interpretation Comments Globulin (test code = Globulin) 4.1 2.0-4.0 [facility] CenterUwdnzndXHPSDSOJTMWJ3288-77-13 01:02:00 Test Item Value Reference Range Interpretation Comments CO2 (test code = CO2) 32 24-32 [facility] CenterUjwklycLGXLILLKEWYY3177-14-25 01:02:00 Test Item Value Reference Range Interpretation Comments Potassium Lvl (test code = Potassium 3.9 3.5-5.1 Lvl) [facility] CenterIohjdxgFWYHDIUJMAAJ4199-65-98 01:02:00 Test Item Value Reference Range Interpretation Comments Chloride Lvl (test code = Chloride Lvl) 104 95-109 [facility] CenterXnrrfjtOQIZSXKPDOWK8842-66-77 01:02:00 Test Item Value Reference Range Interpretation Comments Alk Phos (test code = Alk Phos) 77 39-136 [facility] CenterKlwcqboRDXZUSMNCNHN5157-19-87 01:02:00 Test Item Value Reference Range Interpretation Comments Bili Total (test code = Bili Total) 0.3 0.2-1.3 [facility] CenterKalhxsaDQCMIHHZXMXT4403-34-35 01:02:00 Test Item Value Reference Range Interpretation Comments BUN (test code = BUN) 15 7-22 [facility] CenterEnqlzbkYYQKBHLTIBTA4519-82-68 01:02:00 Test Item Value Reference Range Interpretation Comments Glucose Lvl (test code = Glucose Lvl) 100 70-99 [facility] CenterHdsyypdZSZKFDTDYYWL2786-47-76 01:02:00 Test Item Value Reference Range Interpretation Comments Creatinine Lvl (test code = Creatinine 1.14 0.50-1.40 Lvl) [facility] CenterYllwxtjXRIIJMXKQIHR6038-40-47 01:02:00 Test Item Value Reference Range Interpretation Comments Sodium Lvl (test code = Sodium Lvl) 140 135-145 [facility] CenterUznffxxLCBLGWOAZDQT1144-82-13 01:02:00 Test Item Value Reference Range Interpretation Comments eGFR (test code = eGFR) 90 [facility] CenterAcqetfnQJUVTRBHXSTZ2260-00-65 01:02:00 Test Item Value Reference Range Interpretation Comments Total Protein (test code = Total 8.4 6.4-8.4 Protein) [facility] CenterQunfbbiEMHLJAJROJYB1111-95-25 01:02:00 Test Item Value Reference Range Interpretation Comments Albumin Lvl (test code = Albumin Lvl) 4.3 3.5-5.0 [facility] CenterTisuqbhKEQUNTZMUTRA5607-97-75 01:02:00 Test Item Value Reference Range Interpretation Comments ALT (test code = ALT) 55 <=65 [facility] CenterUaifnifFFMRZVYDBAFP0759-29-68 01:02:00 Test Item Value Reference Range Interpretation Comments Calcium Lvl (test code = Calcium Lvl) 9.0 8.5-10.5 [facility] CenterIcotaanUGOPJKUJSRDM6239-97-98 01:02:00 Test Item Value Reference Range Interpretation Comments AST (test code = AST) 23 <=37 [facility] CenterTmqwztfCYXHOHVIBR9218-31-51 01:02:00 Test Item Value Reference Range Interpretation Comments Monocytes # (test code = Monocytes #) 0.6 <=0.8 [facility] CenterJbcdskfCZZUUZJGTK7762-85-44 01:02:00 Test Item Value Reference Range Interpretation Comments Lymphocytes # (test code = Lymphocytes 1.7 1.0-5.5 #) [facility] CenterAgeukfzQJOSKDNDKR2754-06-56 01:02:00 Test Item Value Reference Range Interpretation Comments Segs-Bands # (test code = Segs-Bands #) 5.7 1.5-8.1 [facility] CenterAoxffzbUKWVIMVHSX7927-79-86 01:02:00 Test Item Value Reference Range Interpretation Comments Eosinophils # (test code = Eosinophils 0.1 <=0.5 #) [facility] CenterLjmqcaiAUPBPNIKAD7225-12-43 01:02:00 Test Item Value Reference Range Interpretation Comments Basophils (test code = Basophils) 0.2 <=1.0 [facility] CenterGjgfohxAAMECAFOGU5026-38-20 01:02:00 Test Item Value Reference Range Interpretation Comments Eosinophils (test code = Eosinophils) 0.6 <=4.0 [facility] CenterLxyjhlnDFODXWQHIN9963-26-74 01:02:00 Test Item Value Reference Range Interpretation Comments Segs (test code = Segs) 70.4 45.0-75.0 [facility] CenterXhntovvWLYIFTZERC9268-82-40 01:02:00 Test Item Value Reference Range Interpretation Comments Monocytes (test code = Monocytes) 8.0 2.0-12.0 [facility]EuiwbybWFVHBLIFMU4305-10-75 01:02:00 Test Item Value Reference Range Interpretation Comments Lymphocytes (test code = Lymphocytes) 20.8 20.0-40.0 [facility] HospitalAlkwhzdAXKQDXGUPL9118-93-30 01:02:00 Test Item Value Reference Range Interpretation Comments Platelet (test code = Platelet) 213 133-450 [facility] CenterJuyqmshBNVMVLUTUH0589-97-30 01:02:00 Test Item Value Reference Range Interpretation Comments MCH (test code = MCH) 30.3 pg 27.0-31.0 [facility] CenterNlpfjegTWJYPSDVIU2875-62-80 01:02:00 Test Item Value Reference Range Interpretation Comments RDW (test code = RDW) 13.7 11.5-14.5 [facility] CenterBilexvpVDIHLSMINI2284-31-96 01:02:00 Test Item Value Reference Range Interpretation Comments MCHC (test code = MCHC) 33.5 32.0-36.0 [facility] CenterIlyjpbyOFCTTOQOPL7417-39-93 01:02:00 Test Item Value Reference Range Interpretation Comments MPV (test code = MPV) 9.5 7.4-10.4 [facility] CenterLylyjjyOOILYNDFLV6417-40-15 01:02:00 Test Item Value Reference Range Interpretation Comments MCV (test code = MCV) 90.6 80.0-94.0 [facility] CenterMtkluvaRAVWTACEBO2482-94-95 01:02:00 Test Item Value Reference Range Interpretation Comments Hct (test code = Hct) 50.3 42.0-54.0 [facility] CenterUlcwgtqYIDESUSWTE9255-84-38 01:02:00 Test Item Value Reference Range Interpretation Comments WBC (test code = WBC) 8.1 3.7-10.4 [facility] HospitalAyqyohyRKRKFILXPK2429-58-83 01:02:00 Test Item Value Reference Range Interpretation Comments Hgb (test code = Hgb) 16.8 14.0-18.0 [facility] CenterQsldponEDCGVOIOSI7666-45-68 01:02:00 Test Item Value Reference Range Interpretation Comments RBC (test code = RBC) 5.55 4.70-6.10 [facility] AND [id number] 01:02:00 Test Item Value Reference Range Interpretation Comments UA Leuk Est (test Negative (10/23/15 8:02 code = UA Leuk Est) PM) [facility] AND [id number] 01:02:00 Test Item Value Reference Range Interpretation Comments UA WBC (test code = UA WBC) no gt <=5 [facility] AND ZTGXZ6535-82-85 01:02:00 Test Item Value Reference Range Interpretation Comments UA RBC (test code = UA RBC) no gt <=2 [facility] AND [id number] 01:02:00 Test Item Value Reference Range Interpretation Comments UA Sq Epi (test code = UA Sq Epi) None Seen [facility] AND [id number] 01:02:00 Test Item Value Reference Range Interpretation Comments UA Urobilinogen (test code = UA <=1.0 mg/dL 0.1-1.0 Urobilinogen) [facility] AND [id number] 01:02:00 Test Item Value Reference Range Interpretation Comments UA Color (test code = UA Color) Ltyellow [facility] AND [id number] 01:02:00 Test Item Value Reference Range Interpretation Comments UA Ketones (test code = UA Negative mg/dL Ketones) [facility] AND [id number] 01:02:00 Test Item Value Reference Range Interpretation Comments UA Nitrite (test code Negative (10/23/15 8:02 = UA Nitrite) PM) [facility] AND [id number] 01:02:00 Test Item Value Reference Range Interpretation Comments UA Blood (test code = Negative (10/23/15 8:02 UA Blood) PM) [facility] AND [id number] 01:02:00 Test Item Value Reference Range Interpretation Comments UA Bili (test code = Negative *NA*(10/23/15 UA Bili) 8:02 PM) [facility] AND [id number] 01:02:00 Test Item Value Reference Range Interpretation Comments UA Protein (test code = UA Negative mg/dL Protein) [facility] AND [id number] 01:02:00 Test Item Value Reference Range Interpretation Comments UA Glucose (test code = UA Negative mg/dL Glucose) [facility] AND [id number] 01:02:00 Test Item Value Reference Range Interpretation Comments UA Spec Grav (test code = UA Spec Grav) 1.025 [facility] AND [id number] 01:02:00 Test Item Value Reference Range Interpretation Comments UA Turbidity (test code = Clear (10/23/15 8:02 UA Turbidity) PM) [facility] AND [id number] 01:02:00 Test Item Value Reference Range Interpretation Comments UA pH (test code = UA pH) 6.0 5.0-8.0 [facility]
--- NOTE | 2023-02-24 08:15 | EDPHYS ---
Physician Documentation [facility] Name: Eliceo Vivar Age: 32 yrs Sex: Male : 1990 Arrival Date: 02/24/2023 Time: 06:54 Bed 7 Private MD: ED Physician Diego De La Torre HPI: 02/24 08:14 This 32 yrs old Male presents to ER via Ambulatory with complaints of Penile ms3 Problem. 08:14 32-year-old male with no past medical history presents to the emergency department for ms3 penile pressure that is been ongoing for 3 months. Patient states he now has bumps that have formed on his penis 3 days prior to arrival. Patient states the discomfort around the bumps is 3/10. Patient denies testicular pain. Patient states he has had 2 partners over the last 6 months.. Historical: - Allergies: 07:18 No Known Allergies; ap3 - Home Meds: 07:18 None [Active]; ap3 - PMHx: 07:18 None; ap3 - Immunization history:: Client reports having NOT received the Covid vaccine. - Social history:: Smoking status: Reported history of juuling and/or vaping. Patient uses alcohol, occasionally. street drugs, marijuana. ROS: 08:14 Constitutional: Negative for fever, and chills. Neck: Negative for injury, pain, and ms3 swelling, Cardiovascular: Negative for chest pain, and palpitations. Respiratory: Negative for shortness of breath, cough, wheezing, and pleuritic chest pain, Abdomen/GI: Negative for abdominal pain, nausea, vomiting, diarrhea, and constipation, MS/Extremity: Negative for injury and deformity, Skin: Negative for injury, rash, and discoloration, 08:14 : Positive for penile pain, Negative for urinary frequency, burning with urination, difficulty urinating, foul smelling urine, penile discharge, testicular pain 08:14 All other systems are negative, Exam: 08:14 Constitutional: This is a well developed, well nourished patient who is awake, alert, ms3 and in no acute distress. Head/Face: Normocephalic, atraumatic. Neck: Trachea midline, no cervical lymphadenopathy. Supple, full range of motion without nuchal rigidity, or vertebral point tenderness. No Meningismus. Chest/axilla: Normal chest wall appearance and motion. Nontender with no deformity. Cardiovascular: Regular rate and rhythm with a normal S1 and S2. No gallops, murmurs, or rubs. Normal PMI, no JVD. No pulse deficits. Respiratory: Lungs have equal breath sounds bilaterally, clear to auscultation and percussion. No rales, rhonchi or wheezes noted. No increased work of breathing, no retractions or nasal flaring. 08:14 : Male external genitalia: Circumcision noted. lesion, of the head of penis, that is painful, Sexual behavior: the patient is sexually active, and reports multiple partners, possible early herpes vs condyloma, Vital Signs: 07:16 BP 149 / 102; Pulse 119; Resp 18; Temp 99.1; Pulse Ox 99% ; Weight 81.65 kg; Height 5 ap3 ft. 11 in. ; Pain 3/10; 07:16 Body Mass Index 25.10 (81.65 kg, 180.34 cm) ap3 07:16 Pain Scale: Adult ap3 MDM: 07:26 Patient medically screened. ms3 08:14 Differential diagnosis: Herpes vs HPV vs Penile lesion. Data reviewed: vital signs, ms3 nurses notes, and as a result, I will discharge patient. Care significantly affected by the following Social Determinants of Health: Poor access to healthcare and/or lack of insurance. Counseling: I had a detailed discussion with the patient and/or guardian regarding the historical points, exam findings, and any diagnostic results supporting the discharge/admit diagnosis, the need for outpatient follow up, to return to the emergency department if symptoms worsen or persist or if there are any questions or concerns that arise at home. Special discussion: I discussed with the patient/guardian in detail that at this point there is no indication for admission to the hospital. It is understood, however, that if the symptoms persist or worsen the patient needs to return immediately for re-evaluation. ED course: Discussed penile lesions with patient. Discussed with patient lesions could be early herpes as the lesions appear to be early vesicles forming. Discussed acyclovir with patient and patient elects to take acyclovir at this time. Patient to follow-up Dr. Cedeño in 2 to 3 days. Patient understands and agrees with plan. All questions were answered. Return precautions discussed include worsening symptoms, or any other concerns. Administered Medications: No medications were administered Disposition Summary: 02/24/23 08:14 Discharge Ordered Notes: Location: Home ms3 Condition: Stable ms3 Diagnosis - Penile lesion ms3 Followup: ms3 - With: Ladarius Cedeño MD - When: 2 - 3 days - Reason: Recheck today's complaints Discharge Instructions: - Discharge Summary Sheet ms3 - Genital Herpes ms3 Forms: - Medication Reconciliation Form ms3 - Thank You Letter ms3 - Antibiotic Education ms3 - Prescription Opioid Use ms3 - Patient Portal Instructions ms3 - Leadership Thank You Letter ms3 Prescriptions: - Acyclovir 200 mg Oral capsule - take 1 capsule ORAL route 5 times per day; 50 capsule; Refills: 0, Product ms3 Selection Permitted Signatures: Bessie Torres RN RN ap3 Diego De La Torre DO DO ms3 Corrections: (The following items were deleted from the chart) 09:48 08:14 : Male external genitalia: Circumcision noted. lesion, of the head of penis, ms3 that is painful, ms3
--- NOTE | 2023-02-24 08:15 | ER ---
[facility] Name: Eliceo Vivar Age: 32 yrs Sex: Male : 1990 Arrival Date: 02/24/2023 Time: 06:54 Bed 7 Private MD: Diagnosis: Penile lesion Presentation: 02/24 07:16 Chief complaint: Patient states: he has been having a pressure feeling in his penis ap3 like he needs to use the restroom, but is trying to hold it. patient reports having this feeling for a few months. Patient also reports that he noticed a "bump" on the head of his penis. Patient reports his pain is currently a 3/10 on the pain scale. Coronavirus screen: At this time, the client does not indicate any symptoms associated with coronavirus-19. Ebola Screen: No symptoms or risks identified at this time. Initial Sepsis Screen: Does the patient meet any 2 criteria? HR > 90 bpm. Does the patient have a suspected source of infection? No. Patient's initial sepsis screen is negative. Risk Assessment: Do you want to hurt yourself or someone else? Patient reports no desire to harm self or others. Onset of symptoms is unknown. 07:16 Method Of Arrival: Ambulatory ap3 07:16 Acuity: DRAGAN 3 ap3 Triage Assessment: 07:19 General: Appears in no apparent distress. Behavior is calm, cooperative, appropriate ap3 for age. Pain: Complains of pain in head of penis Pain currently is 3 out of 10 on a pain scale. Quality of pain is described as pressure. Neuro: Level of Consciousness is awake, alert, obeys commands, Oriented to person, place, time, situation, Appropriate for age. Cardiovascular: Patient's skin is warm and dry. Respiratory: Airway is patent Respiratory effort is even, unlabored, Respiratory pattern is regular, symmetrical. : Reports. Historical: - Allergies: 07:18 No Known Allergies; ap3 - Home Meds: 07:18 None [Active]; ap3 - PMHx: 07:18 None; ap3 - Immunization history:: Client reports having NOT received the Covid vaccine. - Social history:: Smoking status: Reported history of juuling and/or vaping. Patient uses alcohol, occasionally. street drugs, marijuana. Screenin:19 [facility] ED Fall Risk Assessment (Adult) History of falling in the last 3 months, ap3 including since admission No falls in past 3 months (0 pts). Abuse screen: Denies threats or abuse. Nutritional screening: No deficits noted. Tuberculosis screening: No symptoms or risk factors identified. Assessment: 08:13 Reassessment: Dr De La Torre at bedside for assessment. General: Appears in no apparent ph distress. Behavior is calm, cooperative. Pain: Complains of pain in pelvis. Neuro: Level of Consciousness is awake, alert, obeys commands, Oriented to person, place, time, situation. Cardiovascular: Capillary refill < 3 seconds in bilateral fingers Patient's skin is warm and dry. Respiratory: Airway is patent Respiratory effort is even, unlabored. Derm: Skin is pink, warm \\T\\ dry. Vital Signs: 07:16 BP 149 / 102; Pulse 119; Resp 18; Temp 99.1; Pulse Ox 99% ; Weight 81.65 kg; Height 5 ap3 ft. 11 in. ; Pain 3/10; 07:16 Body Mass Index 25.10 (81.65 kg, 180.34 cm) ap3 07:16 Pain Scale: Adult ap3 ED Course: 06:58 Patient arrived in ED. mr 06:58 Diego De La Torre DO is Attending Physician. ms3 07:01 Diego De La Torre DO is Attending Physician. ms3 07:18 Triage completed. ap3 07:19 Arm band placed on right wrist. ap3 08:13 Judi Thurman RN is Primary Nurse. ph 08:13 Ladarius Cedeño MD is Referral Physician. ms3 08:14 Patient has correct armband on for positive identification. Bed in low position. Call ph light in reach. 08:14 No provider procedures requiring assistance completed. Patient did not have IV access ph during this emergency room visit. Administered Medications: No medications were administered Medication: 08:14 VIS not applicable for this client. ph Outcome: 08:14 Discharge ordered by . ms3 08:46 Discharged to home ambulatory, ph 08:46 Condition: good 08:46 Discharge instructions given to patient, Instructed on discharge instructions, follow up and referral plans. medication usage, safe sex practices, Demonstrated understanding of instructions, follow-up care, medications, Prescriptions given X 1, 08:47 Patient left the ED. ph Signatures: Desire Claudio, Reg Reg Judi Thurman RN RN ph Bessie Torres RN RN ap3 Diego De La Torre, DO ROSE ms3
[2023-02-24 08:57] VITALS: BP 149/102; TEMP 99.1; O2SAT 99
== END 2023-02-24 08:47 | disposition home or self-care (01) ==
LOC: ER 06:54
DX: A60.01 Herpesviral infection of penis (principal)
CPT/HCPCS: 99283